=== PATIENT | male | born 1945 | race Caucasian/White ===

== ENCOUNTER → 2024-02-10 09:57 | Outpatient (REF) | payer MEDICARE, OTHER, SELFPAY ==
[2024-02-10 12:55] LABS: Vitamin B12 477 pg/ml (239-931)
[2024-02-10 14:53] LABS: HIV Combo Negative (Negative)
[2024-02-10 16:36] LABS: Syphilis/T. pallidum Ab Reflex Negative (Negative)
[2024-02-12 15:57] LABS: Lyme Antibody Screen, EIA Presump. Positive (Negative)
[2024-02-15 18:07] LABS: Lyme Ab Western Blot IgG Negative (Negative); Lyme Ab Western Blot IgM Negative (Negative)
== END ==
LOC: RAD 09:57
PROVIDERS: ATTENDING PHYSICIAN Family Medicine
DX: M85.89 Other specified disorders of bone density and structure, multiple sites (principal); R41.3 Other amnesia
CPT/HCPCS: 36415; 77080; 82607; 86617; 86618; 86780; 87389

== ENCOUNTER → 2024-03-09 06:39 | Outpatient (REF) | payer MEDICARE, OTHER, SELFPAY | LOC: MRI 06:39 | PROVIDERS: ATTENDING PHYSICIAN Family Medicine | DX: R41.3 Other amnesia (principal) | CPT/HCPCS: 70551 ==

== ENCOUNTER → 2024-07-31 08:10 | Outpatient (REF) | payer MEDICARE, OTHER, SELFPAY ==
[2024-07-31 10:27] LABS: ALT (SGPT) 26 U/L (0-50); AST (SGOT) 40 U/L (17-59); Albumin 4.3 g/dl (3.5-5.0); Alkaline Phosphatase 49 U/L (38-126); Blood Urea Nitrogen 16 mg/dl (9-20); Calcium 9.3 mg/dl (8.4-10.2); Carbon Dioxide 21 mmol/L (22-30); Chloride 106 mmol/L (98-107); Glucose 97 mg/dl (70-99); HDL Cholesterol 82 mg/dl; LDL Cholesterol, Calculated 70 mg/dl; Potassium 4.4 mmol/L (3.5-5.1); Sodium 140 mmol/L (135-145); Total Bilirubin 1.1 mg/dl (0.2-1.3); Total Cholesterol 165 mg/dl (50-199); Triglyceride 65 mg/dl (10-149); Very Low Density Lipoprotein 13 mg/dl (0-30); eGFR > 60.00
[2024-07-31 10:36] LABS: Vitamin D, 25-OH*** 68.1 ng/mL (30-80)
[2024-07-31 11:03] LABS: Glycohemoglobin (HgbA1c) 5.6 % (4.0-5.6)
[2024-08-02 02:36] LABS: PSA Total 5.9 ng/mL (0.0-4.0)
== END ==
LOC: REG 08:10
PROVIDERS: ATTENDING PHYSICIAN Surgery; FAMILY PHYSICIAN Family Medicine
DX: R97.20 Elevated prostate specific antigen [PSA] (principal); E78.5 Hyperlipidemia, unspecified; R73.01 Impaired fasting glucose; E55.9 Vitamin D deficiency, unspecified
CPT/HCPCS: 36415; 80053; 80061; 82306; 83036; 84153; 84154

== ENCOUNTER → 2024-09-29 11:08 | Outpatient (REF) | payer MEDICARE, OTHER, SELFPAY ==
[2024-09-29 13:07] LABS: PSA, Total - Diagnostic 5.86 ng/ml (0.0-4.0)
== END ==
LOC: REG 11:08
PROVIDERS: ATTENDING PHYSICIAN Family Medicine
DX: R97.20 Elevated prostate specific antigen [PSA] (principal)
CPT/HCPCS: 36415; 84153

== ENCOUNTER → 2025-06-18 07:14 | Outpatient (REF) | payer MEDICARE, OTHER, SELFPAY ==
[2025-06-18 08:20] LABS: Hematocrit 39.2 % (39.0-52.0); Hemoglobin 13.3 g/dL (13.0-18.0); Mean Corp Hgb Conc. 33.9 g/dL (33.0-37.0); Mean Corpuscular Volume 98.0 fL (80.0-94.0); Nucleated Red Blood Cells % 0 % (-); Platelet Count 179 10^3/uL (130-400); Red Cell Dist. Width 13.7 % (11.5-14.5)
[2025-06-18 08:41] LABS: ALT (SGPT) 25 U/L (0-50); AST (SGOT) 31 U/L (17-59); Albumin 4.3 g/dl (3.5-5.0); Alkaline Phosphatase 46 U/L (38-126); Blood Urea Nitrogen 16 mg/dl (9-20); Calcium 9.0 mg/dl (8.4-10.2); Carbon Dioxide 24 mmol/L (22-30); Chloride 109 mmol/L (98-107); Glucose 102 mg/dl (70-99); HDL Cholesterol 78 mg/dl; LDL Cholesterol, Calculated 85 mg/dl; Potassium 4.2 mmol/L (3.5-5.1); Sodium 141 mmol/L (135-145); Total Protein 7.1 g/dl (6.3-8.2); Very Low Density Lipoprotein 11 mg/dl (0-30); eGFR > 60.00
[2025-06-18 08:46] LABS: C-Reactive Protein < 5.00 mg/L (0.0-10.00)
[2025-06-18 09:17] LABS: TSH 1.51 uIU/ml (0.47-4.68)
[2025-06-18 14:43] LABS: Glycohemoglobin (HgbA1c) 5.6 % (4.0-5.6)
== END ==
LOC: REG 07:14
PROVIDERS: ATTENDING PHYSICIAN Family Medicine
DX: R63.4 Abnormal weight loss (principal); R73.03 Prediabetes; E78.00 Pure hypercholesterolemia, unspecified
CPT/HCPCS: 36415; 71046; 80053; 80061; 83036; 84443; 85025; 86140

== ENCOUNTER → 2025-07-11 10:58 | Outpatient (REF) | payer MEDICARE, OTHER, SELFPAY | LOC: RAD 10:58 | PROVIDERS: ATTENDING PHYSICIAN Family Medicine | DX: D21.3 Benign neoplasm of connective and other soft tissue of thorax (principal) | CPT/HCPCS: 71260; Q9967 ==